=== PATIENT | male | born 1995 | race Caucasian/White ===

== ENCOUNTER 2023-04-21 19:31 | Inpatient (IN) | payer MEDICAID, SELFPAY ==
[2023-04-21 19:35] VITALS: BP 112/70; PULSE 80; RESP 18; TEMP 36.5; O2SAT 97
[2023-04-21 20:00] VITALS: BMI 23.0
[2023-04-21 20:16] VITALS: BMI 23.0
[2023-04-21 22:00] VITALS: BP 112/70; PULSE 80; RESP 18; TEMP 36.5; O2SAT 97
--- NOTE | 2023-04-22 01:23 | PC.NURSE ---
patient is a poor historian, did not have specific answers to questions, just kept saying, i just want to lay down and sleep no skin issues noted, has a mole on his right buttock and several generalized tatoos. Patient denied any suicidal ideations but admitted that he was depressed. Patient is homeless and states that he does not have any support or friends.
[2023-04-22 06:00] VITALS: RESP 18
--- NOTE | 2023-04-22 06:12 | PC.NURSE ---
resp. pt. sleeping
[2023-04-22] MEDS: buPROPion XL (24 HR) 150 mg Tablet PO (09:02)
[2023-04-22] MEDS: haloperidol 5 mg Tablet PO ×3 (09:02→20:40)
[2023-04-22] MEDS: divalproex ER 500 mg Tablet (24H) PO ×2 (09:02→18:01)
[2023-04-22] MEDS: paliperidone palmitate 234 mg Syringe IM (10:42)
--- NOTE | 2023-04-22 11:25 | P.NPUHP_ITS ---
Providers/Chief Complaint Admitting Physician: Franklin Ramos MD Chief Complaint: SI HPI NPU History of Present Illness Tiffany Ch is a 27 year old male who presented to the outside hospital with reports of depression and suicidal thoughts that have been constant for the past 2 weeks. They report a history of previous interactions with this patient to their ER with admissions to other psychiatric facilities. Reports of depression and anxiety were prevalent during those admissions. He reported that he was feeling like he might hurt himself at any time and given the constant nature of the thoughts that he really needed help he endorsed taking his current medications but feeling like they were not helpful which included Depakote 500 mg twice a day Haldol 5 mg p.o. 3 times daily Invega Sustenna 234 mg IM though it was unclear whether he continued this injection, trazodone 150 mg at bedtime and Wellbutrin XL 450 mg daily. He was transferred to [facility] and admitted to the neuropsychiatric unit for definitive treatment of those issues. This morning he was very hard to arouse secondary to him getting 5 mg of Haldol and 2 mg of Ativan in the evening prior to coming to [facility]. He was not responsive to questions initially and nodded at this food writer's indication that we would restart his home medications as we tried to figure out what exactly was going on. Psychiatric history: As above. Substance abuse history: Patient uses tobacco and chewing tobacco per medical records. Records suggest use of marijuana and methamphetamines but him reporting being sober but is UDS was positive for amphetamines, methamphetamines and marijuana. Family history: No reports of significant family history of any sort. But patient not able to provide that information this morning. Developmental history: Unable to obtain and no records suggesting issues in of any specific variety. Psychosocial history: Unable to obtain. Legal history: No significant legal issues noted in the chart. Medical history: Patient has a history of hypothyroidism status post partial thyroidectomy Meds NPU Home Medications Medication Instructions Recorded Confirmed Last Taken Type bupropion HCl 150 mg 24 hr tablet, 150 mg PO QAM 04/21/23 04/21/23 01/01/23 History extended release (Wellbutrin XL) divalproex 500 mg tablet,extended 500 mg PO BID 04/21/23 04/21/23 01/01/23 History release 24 hr (Depakote ER) haloperidol 5 mg tablet 5 mg PO TID 04/21/23 04/21/23 01/01/23 History paliperidone palmitate 234 mg/1.5 234 mg IM Q30D 04/21/23 04/21/23 12/17/22 History mL intramuscular syringe (Invega Sustenna) trazodone 150 mg tablet 150 mg PO BEDTIME 04/21/23 04/21/23 01/01/23 History Allergies Allergy/AdvReac Type Severity Reaction Status Date / Time iodine Allergy Intermediate ALGY-Rash Verified 04/21/23 22:45 Mental Status Exam MSE Comments: This is a slender white male in hospital scrubs with limited grooming and eye contact. No abnormal movements except for significant psychomotor retardation. Mostly uncooperative with exam in no acute distress. Speech was limited and decreased rate and volume and mostly mumbles. Mood not described affect subdued and lethargic. Thought process not noted. Thought content: Patient did not respond to questions but did not have signs of aggression towards himself or others, there were no signs of delusions and none reported, he did not appear to be attending to internal stimuli in the short interaction. Attention and concentration and memory were impaired but none were formally tested. He was arousable and appeared oriented to self. Insight, judgment and impulse control are impaired. Vitals/I&O/Wt Last Vital Signs Temp 97.7 F 04/21/23 22:00 Pulse 80 04/21/23 22:00 Resp 18 04/22/23 06:00 BP 112/70 04/21/23 22:00 Pulse Ox 97 04/21/23 22:00 O2 Del Method Room Air 04/21/23 22:00 Weight last 48 hrs Weight 74.843 kg Weight 74.843 kg A&P Assessment and plan (1) Methamphetamine use disorder, severe: (2) Cannabis use disorder: (3) Nicotine use disorder: (4) Major depressive disorder, recurrent: (5) History of psychosis: Plan This is a 27 white male with a history of multiple psychiatric inpatient stays at other facilities who presents reporting that the medications he is taking are not effective but also having active addiction with amphetamines and cannabis. 1. Continue current medications. We will explore changes once we have a understanding of what the level of adherence actually was prior to making changes. 2. Encourage individual, group and milieu therapy 3. Continue q-15 minute check for safety 4. Recommend sober living treatment at the highest level of care to which the patient is willing to commit. Attestations NPU Medical Necessity Statement*: Inpatient hospitalization is medically necessary and the clinically appropriate intervention at this time. We will monitor medications and make changes as indicated. Patient will be in the hospital for over two midnights. Likely length of stay is three to five days. Coding Level of Care Code Acute Code for [facility] Diagnoses Methamphetamine use disorder, severe F15.20 Cannabis use disorder F12.90 Nicotine use disorder F17.200 Major depressive disorder, recurrent F33.9 History of psychosis Z86.59
[2023-04-22 13:52] VITALS: BP 95/58; PULSE 97; RESP 16; TEMP 36.8; O2SAT 97
[2023-04-22 20:14] VITALS: BP 96/58; PULSE 92; RESP 16; TEMP 36.8; O2SAT 96
[2023-04-22] MEDS: trazodone 150 mg Tablet PO (20:40)
[2023-04-23 05:51] VITALS: BP 96/58; PULSE 86; RESP 16; TEMP 36.6; O2SAT 95
--- NOTE | 2023-04-23 05:51 | PC.NURSE ---
resp. pt. sleeping
[2023-04-23] MEDS: buPROPion XL (24 HR) 150 mg Tablet PO (05:59)
[2023-04-23] MEDS: haloperidol 5 mg Tablet PO ×3 (09:55→20:39)
[2023-04-23] MEDS: divalproex ER 500 mg Tablet (24H) PO ×2 (09:55→20:39)
[2023-04-23 14:00] VITALS: BP 109/66; PULSE 91; RESP 16; TEMP 36.8; O2SAT 95
--- NOTE | 2023-04-23 15:25 | W.PM.NPUPNS ---
Subjective NPU Subjective: Patient presented today reporting that he was feeling a little better. He was fairly focused on discharge but had no sense of how he was going to have outcomes be different based on his plan. We discussed the different possible discharge options that he and the social work team had discussed thus far and the plan to continue working on that as we move forward. He denied any side effects from his medications which were restarted at this time. Mental Status Exam MSE Comments: This is a slender white male in hospital scrubs with limited grooming and eye contact. No abnormal movements except for significant psychomotor retardation. Slightly more cooperative with exam in no acute distress. Speech was limited and decreased rate and volume with less mumbles. Mood described as I want to leave soon, affect subdued. Thought process linear. Thought content: Patient did not respond to questions but did not have signs of aggression towards himself or others, there were no signs of delusions and none reported, he did not appear to be attending to internal stimuli. Attention and concentration and memory were limited but none were formally tested. He was alert and oriented to person and place. Insight, judgment and impulse control are impaired. Vitals/I&O/Wt Last Vital Signs Temp 98.7 F 04/23/23 19:55 Pulse 91 04/23/23 19:55 Resp 16 04/23/23 19:55 BP 104/51 04/23/23 19:55 Pulse Ox 95 04/23/23 19:55 O2 Del Method Room Air 04/23/23 19:55 A&P Assessment and plan (1) Methamphetamine use disorder, severe: (2) Cannabis use disorder: (3) Nicotine use disorder: (4) Major depressive disorder, recurrent: (5) History of psychosis: Plan This is a 27 white male with a history of multiple psychiatric inpatient stays at other facilities who presents reporting that the medications he is taking are not effective but also having active addiction with amphetamines and cannabis. 1. Continue current medications. 2. Encourage individual, group and milieu therapy 3. Continue q-15 minute check for safety 4. Recommend sober living treatment at the highest level of care to which the patient is willing to commit. Attestations NPU Medical Necessity Statement*: Inpatient hospitalization is medically necessary and the clinically appropriate intervention at this time. We will monitor medications and make changes as indicated. Likely length of stay is 2-4 days. Coding Level of Care Code Acute Code for [facility] Diagnoses Methamphetamine use disorder, severe F15.20 Cannabis use disorder F12.90 Nicotine use disorder F17.200 Major depressive disorder, recurrent F33.9 History of psychosis Z86.59
[2023-04-23 19:55] VITALS: BP 104/51; PULSE 91; RESP 16; TEMP 37.1; O2SAT 95
[2023-04-23] MEDS: trazodone 150 mg Tablet PO (20:39)
[2023-04-24] MEDS: buPROPion XL (24 HR) 150 mg Tablet PO (06:14)
[2023-04-24] MEDS: divalproex ER 500 mg Tablet (24H) PO ×2 (09:15→20:32)
[2023-04-24] MEDS: haloperidol 5 mg Tablet PO ×3 (09:15→20:32)
--- NOTE | 2023-04-24 09:48 | PC.NURSE ---
PT IN BED RESTING UPON INITIAL ASSESSMENT. PT IS WITHDRAWN AND ISOLATING TO ROOM. PT DOES NOT WANT TO SPEAK, STATES JUST LET ME SLEEP. RN INFORMED HIM HE COULD SLEEP ONCE ASSESSMENT WAS DONE. PT DENIES SI/HI AND AVH AT THIS TIME. PT WAS INSTRUCTED TO TAKE MEDICATIONS 3 TIMES AND TO COME EAT BREAKFAST. PT FINALLY DID GET UP TO EAT AND TAKE MEDS WITH MULTIPLE REQUESTS. PT WENT BACK TO ROOM AND IS CURRENTLY RESTING
--- NOTE | 2023-04-24 12:56 | P.NPUPN_ITS ---
Subjective NPU Subjective: Patient presents today having a little more activity but still being isolative. He continues to report working with the social work team to find a suitable option for discharge likely more in the vein of retirement but attempting to find places that are more like a retirement plus having resources to help him get back on track. We are looking at places like [facility] in [place]. He reports that he is doing fine with his medications being restarted and denies any specific side effects or problems. Mental Status Exam MSE Comments: This is a slender white male in hospital scrubs with limited grooming and eye contact. No abnormal movements except for significant psychomotor retardation. Slightly more cooperative with exam in no acute distress. Speech was limited and decreased rate and volume. Mood described as fine, just waiting, affect subdued. Thought process linear. Thought content: Patient did not respond to questions but did not have signs of aggression towards himself or others, there were no signs of delusions and none reported, he did not appear to be attending to internal stimuli. Attention and concentration and memory were limited but none were formally tested. He was alert and oriented to person and place. Insight, judgment and impulse control are impaired. Vitals/I&O/Wt Last Vital Signs Temp 98.7 F 04/23/23 19:55 Pulse 91 04/23/23 19:55 Resp 16 04/23/23 19:55 BP 104/51 04/23/23 19:55 Pulse Ox 95 04/23/23 19:55 O2 Del Method Room Air 04/23/23 19:55 A&P Assessment and plan (1) Methamphetamine use disorder, severe: (2) Cannabis use disorder: (3) Nicotine use disorder: (4) Major depressive disorder, recurrent: (5) History of psychosis: Plan This is a 27 white male with a history of multiple psychiatric inpatient stays at other facilities who presents reporting that the medications he is taking are not effective but also having active addiction with amphetamines and cannabis. 1. Continue current medications. 2. Encourage individual, group and milieu therapy 3. Continue q-15 minute check for safety 4. Recommend sober living treatment at the highest level of care to which the patient is willing to commit. Attestations NPU Medical Necessity Statement*: Inpatient hospitalization is medically necessary and the clinically appropriate intervention at this time. We will monitor medications and make changes as indicated. Likely length of stay is 1-3 days. Coding Level of Care Code Acute Code for [facility] Diagnoses Methamphetamine use disorder, severe F15.20 Cannabis use disorder F12.90 Nicotine use disorder F17.200 Major depressive disorder, recurrent F33.9 History of psychosis Z86.59
[2023-04-24 14:00] VITALS: BP 102/67; PULSE 109; RESP 17; TEMP 36.6; O2SAT 95
[2023-04-24] MEDS: trazodone 150 mg Tablet PO (20:33)
[2023-04-24 21:05] VITALS: BP 110/65; PULSE 91; RESP 18; TEMP 37; O2SAT 97
[2023-04-25] MEDS: buPROPion XL (24 HR) 150 mg Tablet PO (05:56)
[2023-04-25 06:00] VITALS: BP 100/63; PULSE 88; RESP 18; TEMP 37; O2SAT 97
[2023-04-25] MEDS: divalproex ER 500 mg Tablet (24H) PO (09:11)
[2023-04-25] MEDS: haloperidol 5 mg Tablet PO (09:11)
[2023-04-25 09:28] VITALS: BP 100/63; PULSE 88; RESP 18; TEMP 37; O2SAT 97
[2023-04-25] MEDS: paliperidone palmitate 156 mg Syringe IM (09:31)
--- NOTE | 2023-04-25 09:36 | PC.NURSE ---
Administered Invega 156mg into patient's left deltoid muscle. Patient tolerated injection well. All questions answered. Exp: 08/25Lot: [id number]
--- NOTE | 2023-04-25 11:58 | W.PM.NPUDCS ---
Diagnoses at Discharge Discharge Diagnosis (1) Methamphetamine use disorder, severe: Status: Acute (2) Cannabis use disorder: Status: Acute (3) Nicotine use disorder: Status: Acute (4) Major depressive disorder, recurrent: Status: Acute (5) History of psychosis: Status: Acute Reason for Visit Reason for Visit: SI Brief History: History of Present Illness Tiffany Ch is a 27 year old male who presented to the outside hospital with reports of depression and suicidal thoughts that have been constant for the past 2 weeks.? They report a history of previous interactions with this patient to their ER with admissions to other psychiatric facilities.? Reports of depression and anxiety were prevalent during those admissions.? He reported that he was feeling like he might hurt himself at any time and given the constant nature of the thoughts that he really needed help he endorsed taking his current medications but feeling like they were not helpful which included Depakote 500 mg twice a day Haldol 5 mg p.o. 3 times daily Invega Sustenna 234 mg IM though it was unclear whether he continued this injection, trazodone 150 mg at bedtime and Wellbutrin XL 450 mg daily.? He was transferred to [facility] and admitted to the neuropsychiatric unit for definitive treatment of those issues.? This morning he was very hard to arouse secondary to him getting 5 mg of Haldol and 2 mg of Ativan in the evening prior to coming to [facility].? He was not responsive to questions initially and nodded at this video games storywriter's indication that we would restart his home medications as we tried to figure out what exactly was going on. Psychiatric history: As above. Substance abuse history: Patient uses tobacco and chewing tobacco per medical records.? Records suggest use of marijuana and methamphetamines but him reporting being sober but is UDS was positive for amphetamines, methamphetamines and marijuana. Family history: No reports of significant family history of any sort.? But patient not able to provide that information this morning.? Developmental history: Unable to obtain and no records suggesting issues in of any specific variety. Psychosocial history: Unable to obtain. Legal history: No significant legal issues noted in the chart. Medical history: Patient has a history of hypothyroidism status post partial thyroidectomy Hospital Course Hospital Course Patient slowly acclimated to the individual, group and milieu therapies provided.? He presented to the hospital, fairly resistant to treatment and clearly withdrawing from methamphetamine. He was barely able to look at during the stay, and quickly wanting to discharge, but having limited insight and limited resources, and know where to go. Eventually, he was able to work with the social work team on the options that were available and appropriate. Follow up. Yet modest improvement during the hospitalization. He was able to contract for safety, outside of the hospital prior to discharge. At the outside hospital, he had routine laboratory studies which were within normal limits except for a few outliers.? Additionally he had general medical evaluation which was also within normal limits and revealed no new acute processes. Discharge Summary At the time of discharge, he denied any lethality and was absent? psychosis.? Mood and anxiety were well managed and she endorsed a plan to avoid all drugs of abuse, and follow-up with the recommended post hospital services.? He was evaluated and deemed to be absent credible lethality and had received the maximum benefit from an inpatient hospitalization, so was discharged Mental Status Exam MSE Comments: This is a slender white male in hospital scrubs with adequate grooming and eye contact. No abnormal movements except for mild psychomotor retardation. More cooperative with exam in no acute distress. Speech was more normal rate and volume. Mood described as a little better, affect congruent. Thought process linear. Thought content: Patient denies suicidal or homicidal ideation, there were no signs of delusions and none reported, he denied auditory or visual hallucinations. Attention and concentration and memory were limited, but improving but none were formally tested. He was alert and oriented x3. Insight, judgment and impulse control are limited. Discharge Data Vitals: Last Vital Signs Temp 98.6 F 04/25/23 09:28 Pulse 88 04/25/23 09:28 Resp 18 04/25/23 09:28 BP 100/63 04/25/23 09:28 Pulse Ox 97 04/25/23 09:28 O2 Del Method Room Air 04/25/23 06:00 Discharge Plan Discharge Patient Disposition: Home Condition: Stable Prescriptions: Continued haloperidol 5 mg Tablet 5 mg PO TID 30 Days Qty: 90 1RF trazodone 150 mg Tablet 150 mg PO BEDTIME 30 Days Qty: 30 1RF Depakote ER 500 mg Tablet Extended Release 24 Hr 500 mg PO BID 30 Days Qty: 60 1RF Wellbutrin XL 150 mg Tablet Extended Release 24 Hr 150 mg PO QAM 30 Days Qty: 30 1RF Invega Sustenna 234 mg/1.5 mL Syringe 234 mg IM Q30D 30 Days Qty: 1.5 1RF Rx Instructions: Next injection due 05/27/2023. Discharge Orders: Discharge Order (Routine); Ordered 04/25/23 Ordered By: Franklin Ramos Referrals: [facility] [Other] [facility] [Other] - 05/09/23 10:00 am (Initial intake) Sean Mendoza MD [Referring] - 06/13/23 3:40 pm Discharge Diet: Regular Discharge Activity: Resume usual activity Patient Instructions: Paliperidone (By injection) (Invega Sustenna, Invega Trinza, Invega..., Depression (DC), Psychotic Disorder (DC), Opioid Safety Discharge Attestations NPU Time Spent in Discharge Care*: less than 30 min Specific Discharge Activities: Specific discharge activities: educating patient, discussing with high risk case manager/social workers/dc planners, documenting/other paperwork and evaluating patient/reviewing data Coding Level of Care Code Acute [facility] DC note Diagnoses Methamphetamine use disorder, severe F15.20 Cannabis use disorder F12.90 Nicotine use disorder F17.200 Major depressive disorder, recurrent F33.9 History of psychosis Z86.59
== END 2023-04-25 09:56 | disposition home or self-care (01) | DRG 885 ==
PROVIDERS: Admitting Provider Psychiatry & Neurology Psychiatry; Visit Provider Psychiatry & Neurology Psychiatry
DX: F33.9 Major depressive disorder, recurrent, unspecified (principal); R45.851 Suicidal ideations; F15.20 Other stimulant dependence, uncomplicated; F41.9 Anxiety disorder, unspecified; F12.90 Cannabis use, unspecified, uncomplicated; F17.220 Nicotine dependence, chewing tobacco, uncomplicated; E89.0 Postprocedural hypothyroidism
CPT/HCPCS: 96372; 97165; 99238